=== PATIENT | male | born 1950 | race Caucasian/White ===

== ENCOUNTER 2018-07-21 17:39 | Outpatient (REF) | payer MEDICARE, SELFPAY ==
[2018-07-21 19:54] LABS: ALT 33 U/L (12-78); Anion Gap 7.6 mmol/L (3-11); BUN 18 mg/dL (7-18); CO2 29.4 mmol/L (21.0-32.0); CREATININE 1.05 mg/dL (0.70-1.30); Chloride 103 mmol/L (98-107); Glucose 96 mg/dL (70-100); LDL CHOLESTEROL 74 mg/dL (<100); Potassium 4.4 mmol/L (3.5-5.1); Sodium 140 mmol/L (136-145); TSH 1.24 uIU/mL (0.358-3.74); Vitamin B12 302 pg/mL (193-986)
[2018-07-26 11:26] LABS: Hepatitis C Ab w Rflx HCV PCR Negative (NEGAT)
[2018-07-26 14:11] LABS: Albumin 58.8 % (55.8-66.1); Total Protein 6.9 g/dl (6.3-8.2)
== END 2018-07-21 17:59 ==
LOC: NCHCN 17:39
PROVIDERS: PCP Internal Medicine; Visit Provider Internal Medicine
DX: G60.9 Hereditary and idiopathic neuropathy, unspecified (principal); I10 Essential (primary) hypertension; E78.70 Disorder of bile acid and cholesterol metabolism, unspecified; Z11.59 Encounter for screening for other viral diseases
CPT/HCPCS: 80048; 83721; 86803; 82607; 84165; 84443; 84460

== ENCOUNTER 2019-02-25 13:10 | Outpatient (REF) | payer MEDICARE, SELFPAY ==
[2019-02-25 20:05] LABS: Epithelial Cells Rare HPF (Negative); RBC 0-2 (0-2); WBC Negative HPF (0-5)
[2019-02-25 20:06] LABS: Bacteria Negative HPF (Negative); C & S Indicated? C&S Done As Ordered; Casts Negative LPF (Negative); Crystals Negative HPF (Negative); Mucus Negative (Negative)
[2019-02-28 09:17] LABS: PSA, Screening 1.1 ng/ml (0-6.5)
== END 2019-02-25 13:30 ==
LOC: NCHCN 13:10
PROVIDERS: PCP Internal Medicine; Visit Provider Internal Medicine
DX: N40.0 Benign prostatic hyperplasia without lower urinary tract symptoms (principal); Z12.5 Encounter for screening for malignant neoplasm of prostate
CPT/HCPCS: 84153; 81015; 87086

== ENCOUNTER 2020-04-09 21:09 | Outpatient (REF) | payer MEDICARE, SELFPAY ==
[2020-04-09 19:14] LABS: ALT 27 U/L (16-63); Anion Gap 7.7 mmol/L (3-11); BUN 20 mg/dL (7-18); CO2 30.3 mmol/L (21.0-32.0); CREATININE 1.03 mg/dL (0.70-1.30); Calcium 9.5 mg/dL (8.5-10.1); Chloride 103 mmol/L (98-107); Glucose 109 mg/dL (74-106); LDL CHOLESTEROL 87 mg/dL (<100); Potassium 4.5 mmol/L (3.5-5.1); Sodium 141 mmol/L (136-145)
== END 2020-04-09 21:29 ==
LOC: NCHCN 21:09
PROVIDERS: PCP Internal Medicine; Visit Provider Internal Medicine
DX: E78.70 Disorder of bile acid and cholesterol metabolism, unspecified (principal); N40.0 Benign prostatic hyperplasia without lower urinary tract symptoms
CPT/HCPCS: 80048; 83721; 84460

== ENCOUNTER 2020-05-24 14:01 | Outpatient (REF) | payer MEDICARE, SELFPAY ==
--- NOTE | 2020-05-24 12:00 | SKI_PTH ---
PATIENT: Ollie Mondragon LOC: [facility] U#:[id number] AGE/SX: 69/M ROOM: RE05/24/[address]: Ariel Iniguez : 1950 BED: DIS: 05/24/2020 SPEC #: [id number] RECD: 05/24/20 18:30 STATUS: EDINSON REQ #: [id number] HAYLIE: 05/24/20 12:[address]: Ariel Iniguez DEPT: Surgical Specimen RECD BY: Katalina Moreno ENTERED: 05/24/20 18:30 SP TYPE: ELIDA JOSE DR: Ariel Mauricio Tissues: 1 - SKIN BIOPSY(SHAVE/PUNCH) Procedures: SKIN LEVEL 4 Comments: [id number]
== END 2020-05-24 14:21 ==
LOC: NCHCN 14:01
PROVIDERS: PCP Internal Medicine; Visit Provider Internal Medicine
DX: L98.5 Mucinosis of the skin (principal)
CPT/HCPCS: 88305

== ENCOUNTER 2021-04-15 13:25 | Outpatient (REF) | payer MEDICARE, SELFPAY ==
[2021-04-15 20:39] LABS: ALT 19 U/L (16-63); BUN 20 mg/dL (7-18); CREATININE 1.1 mg/dL (0.70-1.30); Calcium 9.2 mg/dL (8.5-10.1); Chloride 103 mmol/L (98-107); Glucose 107 mg/dL (74-106); LDL CHOLESTEROL 99 mg/dL (<100); Potassium 4.6 mmol/L (3.5-5.1); Sodium 142 mmol/L (136-145); TSH 1.66 uIU/mL (0.36-3.74); Vitamin B12 306 pg/mL (193-986)
== END 2021-04-15 13:26 | disposition home or self-care (01) ==
LOC: NCHCN 13:25
PROVIDERS: PCP Internal Medicine; Visit Provider Internal Medicine
DX: I10 Essential (primary) hypertension (principal); E78.70 Disorder of bile acid and cholesterol metabolism, unspecified; G60.9 Hereditary and idiopathic neuropathy, unspecified
CPT/HCPCS: 80048; 83721; 82607; 84443; 84460

== ENCOUNTER 2022-06-02 18:04 | Outpatient (REF) | payer MEDICARE, SELFPAY ==
[2022-06-02 19:53] LABS: Anion Gap 6.7 mmol/L (3-11); BUN 26 mg/dL (7-18); CO2 31.3 mmol/L (21.0-32.0); CREATININE 1.1 mg/dL (0.70-1.30); Calcium 9.2 mg/dL (8.5-10.1); Calculated LDL 78 mg/dL (<100); Chloride 105 mmol/L (98-107); Cholesterol 155 mg/dL (<200); Estimated GFR 70.88 (mL/min/1.73m2); Glucose 116 mg/dL (74-106); HDL Cholesterol 69 mg/dL (40-60); Potassium 4.4 mmol/L (3.5-5.1); Sodium 143 mmol/L (136-145); Triglyceride 43 mg/dL (<150)
[2022-06-03 07:14] LABS: ALT 30 U/L (16-63)
== END 2022-06-02 18:05 | disposition home or self-care (01) ==
LOC: NCHCN 18:04
PROVIDERS: PCP Internal Medicine; Visit Provider Internal Medicine
DX: I10 Essential (primary) hypertension (principal); K64.9 Unspecified hemorrhoids; K58.9 Irritable bowel syndrome, unspecified
CPT/HCPCS: 80048; 80061; 84460